=== PATIENT | male | born 2000 | race Caucasian/White ===

== ENCOUNTER 2022-12-09 16:39 | Emergency (ER) | payer BC ==
[~2022-12-09] VITALS: Ht 185.4 cm; Wt 104.5 kg
[2022-12-09 16:51] VITALS: BP 153/87; TEMP 98.4
[2022-12-09] MEDS ORDERED: AMOXICILLIN 8751 TAB PO (17:53)
[2022-12-09 18:15] VITALS: PULSE 85
== END 2022-12-09 18:21 | disposition home or self-care (01) ==
LOC: COL.ER 16:39
DX: S01.551A Open bite of lip, initial encounter (principal); Z23 Encounter for immunization; W54.0XXA Bitten by dog, initial encounter; Y92.009 Unspecified place in unspecified non-institutional (private) residence as the place of occurrence of the external cause